=== PATIENT | female | born 1990 | race Caucasian/White ===

== ENCOUNTER 2016-12-06 16:33 | Emergency (ER) | payer BC ==
[~2016-12-06] VITALS: Ht 152.4 cm; Wt 67.0 kg
[2016-12-06 17:40] LABS: TROP-I INTERPRETATION NEGATIVE; TROPONIN-I < 0.01 ng/mL (0.0-0.30)
[2016-12-06 17:46] LABS: HEMATOCRIT 41.7 % (36.0-46.0); MCH 29.5 PG (29.0-34.0); MCHC 33.6 G/DL (30.0-36.0); MCV 87.8 FL (83-99); MEAN PLAT.VOLUME 10.6 uM^3 (9.5-12.4); PLATELET COUNT 326 K/uL (156-360); RBC DIS.WIDTH-CV 13.1 % (11.8-14.6); RBC DIS.WIDTH-SD 42.2 % (39-53); RED BLOOD COUNT 4.75 M/uL (3.80-5.20); WHITE BLOOD COUNT 9.8 K/uL (4.1-10.2)
[2016-12-06 17:55] LABS: CHLORIDE 108 mEq/L (99-109); POTASSIUM 3.3 mEq/L (3.7-5.4); SODIUM 140 mEq/L (136-147)
[2016-12-06 17:56] LABS: GLUCOSE 121 mg/dL (70-99)
[2016-12-06 17:58] LABS: ANION GAP 12 MEQ/L (2-14)
[2016-12-06 18:01] LABS: UREA NITROGEN (BUN) 16 mg/dL (9-23)
[2016-12-06 18:05] LABS: GFR ESTIMATE (CALCULATED) > 59 mL/min/
[2016-12-06 21:06] LABS: TROP-I INTERPRETATION NEGATIVE; TROPONIN-I < 0.01 ng/mL (0.0-0.30)
[2016-12-06 21:36] VITALS: BP 122/81
== END 2016-12-06 21:36 | disposition home or self-care (01) ==
LOC: EME 16:33
PROVIDERS: Nurse Practitioner Family
DX: R07.9 Chest pain, unspecified (principal); Z82.49 Family history of ischemic heart disease and other diseases of the circulatory system
CPT/HCPCS: 71020; 80048; 84484; 85027; 93005; 99281; 99284